=== PATIENT | male | born 1985 | race African-American/Black ===

== ENCOUNTER 2017-02-23 19:27 | Emergency (ER) | payer SELFPAY ==
[~2017-02-23] VITALS: Ht 175.3 cm; Wt 95.0 kg
[2017-02-23 18:55] VITALS: O2SAT 98
[2017-02-23 19:30] VITALS: BP 142/72; PULSE 98; RESP 16; TEMP 98.4; O2SAT 99
[2017-02-23] MEDS ORDERED: SODIUM CHLORIDE 0.9% FLUSH 10 ML FLUSH IVF PRN (19:45)
[2017-02-23] MEDS ORDERED: SODIUM CHLOR 0.9% 1000 ML INJ 1,000 ML IV ONE ×2 (19:45)
[2017-02-23 19:48] VITALS: RESP 16; O2SAT 98
--- NOTE | 2017-02-23 19:58 | PD ---
HPI Chief Complaint: Syncope/Near-Syncope Time Seen by Provider: 19:33 Travel History International Travel<30 days: No Contact w/Intl Traveler<30days: No Traveled to known affect area: No History of Present Illness HPI Patient is a 31 year old male who was a rapid response on the floor. As per RN report on the floor, patient was visiting a friend and had a "syncopal episode" . Patient was brought to the ER for further evaluation. Patient reports that he came to the hospital to visit her friend. Patient reports that he was upstairs and felt lightheaded and dizzy and thinks that he may have passed out. Patient reports that the next thing he realized was that he was laying on the floor. 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 Reports that he was told that he had this episode because of dehydration. Patient reports that he did work today, reports that he tries to drink enough fluids but "it was hot outside" and reports that he doesn't think he drinks enough. Reports "i think that I am just dehydrated." Patient denies history of seizures, reports no past medical history. Patient this time only complains of pain to the back of his head, when he fell, he hit the back of the head on the floor. Patient denies lightheadedness/dizzyness at this time. Denies chest pain/sob. Denies abdominal pain. Denies n/v. Reports no other c/o. Patient does admit to smoking marijuana today. PFSH Past Medical History Asthma: Yes Tetanus Vaccination: Unknown Influenza Vaccination: No Past Surgical History Surgical History: No Previous Surgery Social History Alcohol Use: Yes (OCCASIONALLY) Tobacco Use: Yes (1/2 PPD) Substance Use: Yes (MARIJUANA) Allergies-Medications (Allergen,Severity, Reaction): Coded Allergies: No Known Allergies (Verified , 02/23/17) Reported Meds & Prescriptions Reported Meds & Active Scripts Active No Active Prescriptions or Reported Medications Review of Systems General / Constitutional: No: Fever Eyes: No: Visual changes HENT: Positive: Headaches, Lightheadedness Cardiovascular: No: Chest Pain or Discomfort, Palpitations, Tachycardia, Diaphoresis Respiratory: No: Shortness of Breath Gastrointestinal: No: Nausea, Vomiting, Abdominal Pain Genitourinary: No: Dysuria Musculoskeletal: No: Pain Skin: No Rash Neurologic: No: Weakness Psychiatric: No: Depression Endocrine: No: Polydipsia Hematologic/Lymphatic: No: Easy Bruising Physical Exam Narrative GENERAL: nad, nontoxic SKIN: Focused skin assessment warm/dry. HEAD: Atraumatic. Normocephalic. EYES: Pupils equal and round. No scleral icterus. No injection or drainage. ENT: No nasal bleeding or discharge. Mucous membranes pink and moist. NECK: Trachea midline. No JVD. No C-spine tenderness, no paraspinal tenderness, no pain with rom to neck CARDIOVASCULAR: Regular rate and rhythm. No murmur appreciated. RESPIRATORY: No accessory muscle use. Clear to auscultation. Breath sounds equal bilaterally. GASTROINTESTINAL: Abdomen soft, non-tender, nondistended. Hepatic and splenic margins not palpable. MUSCULOSKELETAL: No obvious deformities. No clubbing. No cyanosis. No edema. NEUROLOGICAL: Awake and alert. No obvious cranial nerve deficits. Motor grossly within normal limits. Normal speech. PSYCHIATRIC: Appropriate mood and affect; insight and judgment normal. Data Data Last Documented VS Vital Signs Date Time Temp Pulse Resp B/P Pulse Ox O2 Delivery O2 Flow Rate FiO2 02/23/17 19:59 88 24 123/65 111 25 132/69 99 23 146/74 02/23/17 19:48 98 Room Air 02/23/17 19:30 98.4 Orders Complete Blood Count With Diff (02/23/17 19:44) Comprehensive Metabolic Panel (02/23/17 19:44) Drug Screen, Random Urine (02/23/17 19:44) Urinalysis - C+S If Indicated (02/23/17 19:44) Ct Brain W/O Iv Contrast(Rout) (02/23/17 19:44) Chest, Single Ap (02/23/17 19:44) Ecg Monitoring (02/23/17 19:44) Iv Access Insert/Monitor (02/23/17 19:44) Oximetry (02/23/17 19:44) Sodium Chloride 0.9% Flush (Ns Flush) (02/23/17 19:45) Orthostatic Vital Signs (02/23/17 19:44) Sodium Chlor 0.9% 1000 Ml Inj (Ns 1000 M (02/23/17 19:45) Sodium Chlor 0.9% 1000 Ml Inj (Ns 1000 M (02/23/17 19:45) Electrocardiogram (02/23/17 19:22) Labs Laboratory Tests Test 02/23/17 19:50 White Blood Count 6.2 TH/MM3 Red Blood Count 4.12 MIL/MM3 Hemoglobin 13.0 GM/DL Hematocrit 36.9 % Mean Corpuscular Volume 89.7 FL Mean Corpuscular Hemoglobin 31.5 PG Mean Corpuscular Hemoglobin 35.1 % Concent Red Cell Distribution Width 13.6 % Platelet Count 170 TH/MM3 Mean Platelet Volume 9.9 FL Neutrophils (%) (Auto) 39.3 % Lymphocytes (%) (Auto) 42.0 % Monocytes (%) (Auto) 14.2 % Eosinophils (%) (Auto) 4.3 % Basophils (%) (Auto) 0.2 % Neutrophils # (Auto) 2.4 TH/MM3 Lymphocytes # (Auto) 2.6 TH/MM3 Monocytes # (Auto) 0.9 TH/MM3 Eosinophils # (Auto) 0.3 TH/MM3 Basophils # (Auto) 0.0 TH/MM3 CBC Comment DIFF FINAL Differential Comment Sodium Level 141 MEQ/L Potassium Level 3.9 MEQ/L Chloride Level 105 MEQ/L Carbon Dioxide Level 28.4 MEQ/L Anion Gap 8 MEQ/L Blood Urea Nitrogen 12 MG/DL Creatinine 0.89 MG/DL Estimat Glomerular Filtration 119 ML/MIN Rate Random Glucose 73 MG/DL Calcium Level 9.0 MG/DL Total Bilirubin 0.4 MG/DL Aspartate Amino Transf 26 U/L (AST/SGOT) Alanine Aminotransferase 30 U/L (ALT/SGPT) Alkaline Phosphatase 71 U/L Total Protein 6.8 GM/DL Albumin 3.3 GM/DL [facility] Medical Decision Making Medical Screen Exam Complete: Yes Emergency Medical Condition: Yes Interpretation(s) ekg at 192: NSR at 96bpm, qt/qtc: 322/376, nonspecific st/t wave changes Vital Signs Date Time Temp Pulse Resp B/P Pulse Ox O2 Delivery O2 Flow Rate FiO2 02/23/17 19:31 98 16 99 Room Air 02/23/17 19:30 98.4 98 16 142/72 99 Differential Diagnosis Dehydration, intracranial hemorrhage, seizure, electrolyte abnormality, orthostatic hypotension Narrative Course Patient is a 31-year-old male who presents to emergency room with complaints of questionable syncopal episode. Patient was at the hospital today visiting a friend, patient reports that the next thing he knew he was laying on the floor. Bystanders report the patient may have had a seizure episode, patient denies any incontinence of urine after episode. Patient reports that he thinks that he may have had a seizure episode in the past, reports that he was never diagnosed formally with a seizure. Patient reports that 2 and half years ago, he had a similar symptoms of passing out after work as he worked as a client program manager , patient reports that he was told that a syncopal episode from dehydration. Overall, patient is nontoxic and evaluation. Patient with no complaints other than headache to the back of his head from hitting the floor. Patient with benign neurological exam. Plan to obtain CT of the head. Plan to obtain lab work, check UA, orthostatic vital signs. Plan to hydrate patient with IV fluids as patient reports that he does feel dehydrated work outside today wmblying and does not think that he drink enough fluids. Patient also admits to smoking marijuana today. Denies any use of any other drugs. Denies chest pain or shortness of breath. Plan to monitor patient on a bus driver/monitor. Vital Signs Date Time Temp Pulse Resp B/P Pulse Ox O2 Delivery O2 Flow Rate FiO2 02/23/17 19:59 88 24 123/65 111 25 132/69 99 23 146/74 02/23/17 19:48 16 98 Room Air 02/23/17 19:31 98 16 99 Room Air 02/23/17 19:30 98.4 98 16 142/72 99 Laboratory Tests Test 02/23/17 19:50 White Blood Count 6.2 TH/MM3 (4.0-11.0) Red Blood Count 4.12 MIL/MM3 (4.50-5.90) Hemoglobin 13.0 GM/DL (13.0-17.0) Hematocrit 36.9 % (39.0-51.0) Mean Corpuscular Volume 89.7 FL (80.0-100.0) Mean Corpuscular Hemoglobin 31.5 PG (27.0-34.0) Mean Corpuscular Hemoglobin 35.1 % Concent (32.0-36.0) Red Cell Distribution Width 13.6 % (11.6-17.2) Platelet Count 170 TH/MM3 (150-450) Mean Platelet Volume 9.9 FL (7.0-11.0) Neutrophils (%) (Auto) 39.3 % (16.0-70.0) Lymphocytes (%) (Auto) 42.0 % (9.0-44.0) Monocytes (%) (Auto) 14.2 % (0.0-8.0) Eosinophils (%) (Auto) 4.3 % (0.0-4.0) Basophils (%) (Auto) 0.2 % (0.0-2.0) Neutrophils # (Auto) 2.4 TH/MM3 (1.8-7.7) Lymphocytes # (Auto) 2.6 TH/MM3 (1.0-4.8) Monocytes # (Auto) 0.9 TH/MM3 (0-0.9) Eosinophils # (Auto) 0.3 TH/MM3 (0-0.4) Basophils # (Auto) 0.0 TH/MM3 (0-0.2) CBC Comment DIFF FINAL Differential Comment Sodium Level 141 MEQ/L (136-145) Potassium Level 3.9 MEQ/L (3.5-5.1) Chloride Level 105 MEQ/L (98-107) Carbon Dioxide Level 28.4 MEQ/L (21.0-32.0) Anion Gap 8 MEQ/L (5-15) Blood Urea Nitrogen 12 MG/DL (7-18) Creatinine 0.89 MG/DL (0.60-1.30) Estimat Glomerular Filtration 119 ML/MIN Rate (>89) Random Glucose 73 MG/DL (74-106) Calcium Level 9.0 MG/DL (8.5-10.1) Total Bilirubin 0.4 MG/DL (0.2-1.0) Aspartate Amino Transf 26 U/L (15-37) (AST/SGOT) Alanine Aminotransferase 30 U/L (12-78) (ALT/SGPT) Alkaline Phosphatase 71 U/L (45-117) Total Protein 6.8 GM/DL (6.4-8.2) Albumin 3.3 GM/DL (3.4-5.0) Last Impressions Head CT 02/23/174 Signed Impressions: Service Date/Time: Thursday, February 23, 2017 19:58 - CONCLUSION: Normal examination. Tommy Worthy MD Chest X-Ray 02/23/171943 Signed Impressions: Service Date/Time: Thursday, February 23, 2017 19:47 - CONCLUSION: Normal examination. Tommy Worthy MD All labs and all studies was reviewed patient in detail. Patient reports that he is feeling much better at this time. Patient will follow up his primary care doctor and will return to emergency room as needed. I am unsure if patient had a seizure episode versus syncopal episode, discussed need for patient to follow-up with neurologist for further testing. Understands that he should not drive or operate any vehicles is seen and cleared by a neurologist. Diagnosis Primary Impression: Syncopal episodes Qualified Code: R55 - Syncope, unspecified syncope type Referrals: Pao Kohli MD Patient Instructions: General Instructions Additional Instructions: Please follow-up with your primary care doctor in 2-3 days Return to emergency room as needed Return to the emergency room if symptoms worsen or persist Please drink plenty of fluids Please do not drive a car or operate heavy machinery until you are seen and cleared by neurologist Scripts No Active Prescriptions or Reported Meds Disposition: 01 DISCHARGE HOME Condition: Stable Kendal Lujan DO Feb 23, 2017 19:58
[2017-02-23 19:59] VITALS: BP_SYST 123; BP_SYST 132; BP_SYST 146; BP_DIAS 65; BP_DIAS 69; BP_DIAS 74; RESP 23; RESP 24; RESP 25
--- NOTE | 2017-02-23 20:02 | RADRPT ---
EXAM DATE/TIME: 02/23/2017 19:47 [facility] COMPARISON: No previous studies available for comparison. INDICATIONS : Syncopal episode today. MEDICAL HISTORY : Asthma. SURGICAL HISTORY : None. ENCOUNTER: Initial ACUITY: 1 day PAIN SCORE: 0/10 LOCATION: Bilateral chest FINDINGS: A single view of the chest demonstrates the lungs to be symmetrically aerated without evidence of mas s, infiltrate or effusion. The cardiomediastinal contours are unremarkable. Osseous structures are intact. CONCLUSION: Normal examination. Tommy Worthy MD on February 23, 2017 at 20:00 Board Certified Radiologist. This report was verified electronically.
--- NOTE | 2017-02-23 20:12 | RADRPT ---
EXAM DATE/TIME: 02/23/2017 19:58 [facility] COMPARISON: No previous studies available for comparison. INDICATIONS : Syncopal episode today; hit posterior head. RADIATION DOSE: 56.35 CTDIvol (mGy) MEDICAL HISTORY : None SURGICAL HISTORY : None. ENCOUNTER: Initial ACUITY: 1 day PAIN SCALE: 3/10 LOCATION: cranial Posterior TECHNIQUE: Multiple contiguous axial images were obtained of the head. Using automated exposure control and adj ustment of the mA and/or kV according to patient size, radiation dose was kept as low as reasonably a chievable to obtain optimal diagnostic quality images. FINDINGS: CEREBRUM: The ventricles are normal for age. No evidence of midline shift, mass lesion, hemorrhage or acute in farction. No extra-axial fluid collections are seen. POSTERIOR FOSSA: The cerebellum and brainstem are intact. The 4th ventricle is midline. The cerebellopontine angle i s unremarkable. EXTRACRANIAL: The visualized portion of the orbits is intact. SKULL: The calvaria is intact. No evidence of skull fracture. CONCLUSION: Normal examination. Tommy Worthy MD on February 23, 2017 at 20:10 Board Certified Radiologist. This report was verified electronically.
[2017-02-23 20:30] LABS: AUTOMATED NEUTROPHIL # 2.4 TH/MM3 (1.8-7.7); BASOPHIL % 0.2 % (0.0-2.0); EOSINOPHIL # 0.3 TH/MM3 (0-0.4); EOSINOPHIL % 4.3 % (0.0-4.0); HEMATOCRIT 36.9 % (39.0-51.0); HEMO FLAGS DIFF FINAL; LYMPHOCYTE # 2.6 TH/MM3 (1.0-4.8); MEAN CELL VOLUME 89.7 FL (80.0-100.0); MEAN CORPUSCULAR HEMOGLOBIN 31.5 PG (27.0-34.0); MEAN CORPUSCULAR HGB CONC 35.1 % (32.0-36.0); MONO % 14.2 % (0.0-8.0); NEUT % 39.3 % (16.0-70.0); PLATELET COUNT 170 TH/MM3 (150-450); RED BLOOD COUNT 4.12 MIL/MM3 (4.50-5.90); RED CELL DISTRIBUTION WIDTH 13.6 % (11.6-17.2); WHITE BLOOD COUNT 6.2 TH/MM3 (4.0-11.0)
[2017-02-23 20:38] LABS: ALKALINE PHOSPHATASE 71 U/L (45-117); ALT (GPT) 30 U/L (12-78); ANION GAP 8 MEQ/L (5-15); AST (GOT) 26 U/L (15-37); BICARBONATE 28.4 MEQ/L (21.0-32.0); BLOOD UREA NITROGEN 12 MG/DL (7-18); CHLORIDE 105 MEQ/L (98-107); GLOMERULAR FILTRATION RATE 119 ML/MIN (>89); POTASSIUM 3.9 MEQ/L (3.5-5.1); SODIUM (NA) 141 MEQ/L (136-145); TOTAL BILIRUBIN ADULT 0.4 MG/DL (0.2-1.0)
--- NOTE | 2017-02-24 08:53 | EKG ---
Date Performed: 02/23/2017 Time Performed: 19:22:38 PTAGE: 31 years EKG: Sinus rhythm NONSPECIFIC ST & T-WAVE ABNORMALITY BORDERLINE ECG NO PREVIOUS TRACING DOCTOR: Ion Betancourt Interpretating Date/Time 02/24/2017 08:50:53
== END 2017-02-23 23:01 | disposition home or self-care (01) ==
LOC: NEPD 19:27
DX: R55 Syncope and collapse (principal); R51 Headache; R94.31 Abnormal electrocardiogram [ECG] [EKG]; F17.200 Nicotine dependence, unspecified, uncomplicated; W18.39XA Other fall on same level, initial encounter; Y92.239 Unspecified place in hospital as the place of occurrence of the external cause
CPT/HCPCS: 70450; 71010; 80053; 85025; 93005; 96360; 99284; J7030